=== PATIENT | male | born 1980 | race Caucasian/White ===

== ENCOUNTER 2016-07-04 10:50 | Emergency (ER) | payer BC ==
[2016-07-04] MEDS ORDERED: ONDANSETRON 4MG/2ML VIAL (J2405) As Ordered ONE (13:40)
[2016-07-04 13:57] LABS: BASO # 0.2 K/mm3 (0.0-0.2); BASO % 1.9 % (0.0-1.0); EOS # 0.1 K/mm3 (0.0-0.50); LARGE UNSTAINED CELL # 0.1 K/mm3 (0.0-0.4); LARGE UNSTAINED CELL % 1.4 % (0.0-4.0); LYMPH # 1.4 K/mm3 (1.5-4.5); LYMPH % 14.6 % (24.0-44.0); MEAN CORPUSCULAR HEMOGLOBIN 32.7 pg (27.0-33.0); MEAN CORPUSCULAR HGB CONC 35.5 g/dl (32.0-36.5); MEAN CORPUSCULAR VOLUME 91.9 fl (80.0-96.0); MONO # 0.4 K/mm3 (0.0-0.8); MONO % 4.6 % (0.0-5.0); NEUTROPHILS # 6.7 K/mm3 (1.8-7.7); NEUTROPHILS % 76.5 % (36.0-66.0); PLATELET COUNT, AUTOMATED 245 k/mm3 (150-450); RED CELL DISTRIBUTION WIDTH 12.4 % (11.5-14.5); WHITE BLOOD COUNT 8.8 K/mm3 (4.0-10.0)
[2016-07-04 14:07] LABS: CONTROL LINE MONO INT CTR LINE PRESENT
--- NOTE | 2016-07-04 14:08 | REP ---
Clinical: Abdominal pain. Technique: Upright view of the chest with supine and upright views of the abdomen and pelvis. Findings: Frontal upright view of the chest demonstrates no acute cardiopulmonary process or free air below the diaphragm to suspect pneumoperitoneum. Supine and upright views of the abdomen and pelvis demonstrate nonspecific bowel gas pattern without obstruction or perforation. No organomegaly. No abnormal calcifications. Skeletal structures normal for age. Impression: Nonspecific bowel gas pattern. Signed by Efrain Moore MD 07/04/2016 01:59 P
[2016-07-04 14:16] LABS: ALBUMIN 4.8 GM/DL (3.2-5.2); ALBUMIN/GLOBULIN RATIO 1.85 (1.00-1.93); ALKALINE PHOSPHATASE 76 U/L (45-117); ALT/SGPT 23 U/L (12-78); ANION GAP 9 MEQ/L (8-16); AST/SGOT 42 U/L (15-37); BILIRUBIN,DIRECT 0.2 MG/DL (0.0-0.2); BLOOD UREA NITROGEN 16 MG/DL (7-18); CALCIUM LEVEL 9.3 MG/DL (8.5-10.1); CARBON DIOXIDE LEVEL 27 MEQ/L (21-32); CHLORIDE LEVEL 105 MEQ/L (98-107); CREATININE FOR GFR 0.85 MG/DL (0.70-1.30); GLOMERULAR FILTRATION RATE > 60.0 (>60); GLUCOSE, FASTING 77 MG/DL (70-105); POTASSIUM SERUM 4.4 MEQ/L (3.5-5.1); SODIUM LEVEL 141 MEQ/L (136-145); TOTAL PROTEIN 7.4 GM/DL (6.4-8.2)
--- NOTE | 2016-07-04 14:43 | EDDOCDS ---
Nurse's Notes [facility] Name: Ronn Hancock Age: 36 yrs Sex: Male : 1980 Arrival Date: 07/04/2016 Time: 10:50 Bed I3 / M3 Private MD: NO PRIMARY PHYSICIAN, . Diagnosis: Constipation, unspecified Presentation: 07/04 11:05 Presenting complaint: Patient states: for the past few months he has had nausea and kcs abdominal pain - last few weeks constipated . Dry mouth. Adult Sepsis Screening: The patient does not have new or worsening altered mentation. Patient's respiratory rate is less than 22. Systolic blood pressure is greater than 100. Patient has a qSOFA score of 0- Negative Sepsis Screen. Suicide/Homicide risk assessment- the patient denies having any suicidal and/or homicidal ideations and does not present with any other emotional, behavioral or mental health complaints. Status: Patient is not a general service officer or dependent. Transition of care: patient was not received from another setting of care. 11:05 Acuity: RAMONA Level 3 kcs 11:05 Method Of Arrival: Walkin/Carried/Asstd kcs Triage Assessment: 11:07 General: Appears comfortable, slender, well developed, well nourished, Behavior is kcs cooperative, pleasant. Pain: Location: left flank in to epigastric area and mid-abdomen Pain currently is 5 out of 10 on a pain scale. Pt Declines HIV testing. Neurological: Level of Consciousness is awake, alert. Respiratory: Airway is patent Respiratory effort is even, unlabored, Respiratory pattern is regular, symmetrical. Derm: Skin is intact, is healthy with good turgor, Skin is dry, Skin is normal. Historical: - Allergies: No known drug Allergies; - Home Meds: 1. none - PMHx: none; - PSHx: left middle finger surgery; - Social history: Smoking status: Patient uses tobacco products, light tobacco smoker. No barriers to communication noted, The patient speaks fluent [place]. - Family history: Not pertinent. - : The pt / caregiver states he / she is not on anticoagulants. Home medication list is obtained from the patient. - Exposure Risk Screening:: None identified. Screenin:38 Screening information is obtained from the patient. Fall risk: No risks identified. kr3 Assistance ADL's: requires no assistance with activities of daily living. Abuse/DV Screen: The patient / caregiver reports he/she is: not in a situation that causes fear, pain or injury. Nutritional screening: No deficits noted. Advance Directives: Currently, there is no health care proxy. home support is adequate. Assessment: 13:38 General: Appears in no apparent distress, comfortable, Behavior is appropriate for age, kr3 cooperative. Pain: Denies pain. Neurological: No deficits noted. GI: Bowel sounds present X 4 quads. Abd is soft and non tender Reports nausea. Derm: Skin is pink, warm & dry. 14:42 Adult Sepsis Screening: The patient does not have new or worsening altered mentation. dsf Patient's respiratory rate is less than 22. Systolic blood pressure is greater than 100. Patient has a qSOFA score of 0- Negative Sepsis Screen. General: Appears in no apparent distress, Behavior is appropriate for age, cooperative. Pain: Denies pain. Neurological: Level of Consciousness is awake, alert. Cardiovascular: Capillary refill < 3 seconds. Respiratory: Airway is patent Respiratory effort is even, unlabored, Respiratory pattern is regular, symmetrical. GI: Abdomen is flat. Derm: Skin is pink, warm & dry. Vital Signs: 10:52 BP 144 / 83; Pulse 88; Resp 18; Temp 99.3(O); Pulse Ox 98% ; Weight 59.42 kg (R); cmb Height 5 ft. 9 in. (175.26 cm) (R); Pain 7/10; 14:41 BP 128 / 86; Pulse 77; Resp 16; Temp 98.6(T); Pulse Ox 97% on R/A; Pain 0/10; dsf 10:52 Body Mass Index 19.35 (59.42 kg, 175.26 cm) cmb Vitals: 10:52 Log In Time: July 04, 2016 at 10:40. cmb 13:44 Strep Screen is obtained and tested: Negative, a GATSNEG culture is ordered in [facility] kr3 and sent. ED Course: 10:51 Patient visited by Nisha Garrison. cmb 10:51 Patient moved to Waiting cmb 10:52 NO PRIMARY PHYSICIAN, . is Private Physician. cmb 10:52 Patient moved to Pre RCE cmb 11:06 Triage Initiated kcs 12:10 Patient moved to Triage 3 rs3 12:27 Shayne Chavez PA-C is [facility]. cc10 12:27 Maximus Dunn MD is Attending Physician. cc10 12:55 Patient visited by Anusha Packer RN. mk4 12:57 Patient visited by Shayne Chavez PA-C. cc10 12:57 Patient visited by Shayne Chavez PA-C. cc10 13:23 Urinalysis Sent. jrd 13:24 Patient moved to 3 / jrd 13:37 Monoscreen Sent. kr3 13:37 Basic Metabolic Profile Sent. kr3 13:37 CBC with Diff Sent. kr3 13:37 Lipase Sent. kr3 13:37 Liver Profile Sent. kr3 13:37 Inserted saline lock: 20 gauge in right antecubital area and blood collected. The maki3 patient tolerated the procedure well. 13:38 The patient / caregiver is instructed regarding the plan of care and ED course. Patient jackie has correct armband on for positive identification. Placed in gown. Bed in low position. Call light in reach. Side rails up X 1. 13:47 Patient moved to Radiology dsf 13:56 Patient moved to / [facility] 13:58 Patient visited by Darleen Ogden RN. kr3 14:04 Patient name changed from Ronn\S\\S\Hancock\S\ to Ronn\S\Geovanny\S\Hancock. EDMS 14:06 [facility] Payment Agreement was scanned into [employer] and attached to record. lg 14:28 Abdomen, Flat\E\Upright,PA Chest Returned. EDMS 14:36 [facility] is Referral Physician. cc10 14:41 Discontinued lock intact, bleeding controlled, pressure dressing applied, No dsf redness/swelling at site. No procedures done that require assistance. Administered Medications: 13:42 Drug: Ondansetron 4 mg [ondansetron HCl 2 mg/mL intravenous solution (2 mL)] Route: kr3 IVP; Site: right antecubital; 13:42 Drug: NS 0.9% 500 ml [sodium chloride 0.9 % intravenous solution] Route: IV; Rate: kr3 bolus; Site: right antecubital; 14:43 Follow up: IV Status: Completed infusion; IV Intake: 500ml dsf Intake: 14:43 IV: 500.00ml; Total: 500.00ml. dsf Order Results: Lab Order: Basic Metabolic Profile; SPEC'M 07/04/16 13:35 Test: GLUCOSE, FASTING; Value: 77; Range: 70-105; Units: MG/DL; Status: F Test: BLOOD UREA NITROGEN; Value: 16; Range: 7-18; Units: MG/DL; Status: F Test: CREATININE FOR GFR; Value: 0.85; Range: 0.70-1.30; Units: MG/DL; Status: F Test: SODIUM LEVEL; Range: 136-145; Units: MEQ/L; Status: I Test: POTASSIUM SERUM; Range: 3.5-5.1; Units: MEQ/L; Status: I Test: CHLORIDE LEVEL; Range: 98-107; Units: MEQ/L; Status: I Test: CARBON DIOXIDE LEVEL; Range: 21-32; Units: MEQ/L; Status: I Test: ANION GAP; Range: 8-16; Units: MEQ/L; Status: I Test: CALCIUM LEVEL; Range: 8.5-10.1; Units: MG/DL; Status: I Test: GLOMERULAR FILTRATION RATE; Value: > 60.0; Range: >60; Status: F Test: SODIUM LEVEL; Value: 141; Range: 136-145; Units: MEQ/L; Status: F Test: POTASSIUM SERUM; Value: 4.4; Range: 3.5-5.1; Units: MEQ/L; Status: F Test: CHLORIDE LEVEL; Value: 105; Range: 98-107; Units: MEQ/L; Status: F Test: CARBON DIOXIDE LEVEL; Value: 27; Range: 21-32; Units: MEQ/L; Status: F Test: ANION GAP; Value: 9; Range: 8-16; Units: MEQ/L; Status: F Test: CALCIUM LEVEL; Value: 9.3; Range: 8.5-10.1; Units: MG/DL; Status: F Test Note: ; Units are mL/min/1.73 m2 Chronic Kidney Disease Staging per NKF: Stage I & II GFR >=60 Normal to Mildly Decreased Stage III GFR 30-59 Moderately Decreased Stage IV GFR 15-29 Severely Decreased Stage V GFR <15 Very Little GFR Left ESRD GFR <15 on STRAP CUTTER Lab Order: CBC with Diff; SPEC'M 07/04/16 13:35 Test: WHITE BLOOD COUNT; Value: 8.8; Range: 4.0-10.0; Units: K/mm3; Status: F Test: RED BLOOD COUNT; Value: 4.82; Range: 4.30-6.10; Units: M/mm3; Status: F Test: HEMOGLOBIN; Value: 15.7; Range: 14.0-18.0; Units: g/dl; Status: F Test: HEMATOCRIT; Value: 44.3; Range: 42.0-52.0; Units: %; Status: F Test: MEAN CORPUSCULAR VOLUME; Value: 91.9; Range: 80.0-96.0; Units: fl; Status: F Test: MEAN CORPUSCULAR HEMOGLOBIN; Value: 32.7; Range: 27.0-33.0; Units: pg; Status: F Test: MEAN CORPUSCULAR HGB CONC; Value: 35.5; Range: 32.0-36.5; Units: g/dl; Status: F Test: RED CELL DISTRIBUTION WIDTH; Value: 12.4; Range: 11.5-14.5; Units: %; Status: F Test: PLATELET COUNT, AUTOMATED; Value: 245; Range: 150-450; Units: k/mm3; Status: F Test: NEUTROPHILS %; Value: 76.5; Range: 36.0-66.0; Abnormal: Above high normal; Units: %; Status: F Test: LYMPH %; Value: 14.6; Range: 24.0-44.0; Abnormal: Below low normal; Units: %; Status: F Test: MONO %; Value: 4.6; Range: 0.0-5.0; Units: %; Status: F Test: EOS %; Value: 1.0; Range: 0.0-3.0; Units: %; Status: F Test: BASO %; Value: 1.9; Range: 0.0-1.0; Abnormal: Above high normal; Units: %; Status: F Test: LARGE UNSTAINED CELL %; Value: 1.4; Range: 0.0-4.0; Units: %; Status: F Test: NEUTROPHILS #; Value: 6.7; Range: 1.8-7.7; Units: K/mm3; Status: F Test: LYMPH #; Value: 1.4; Range: 1.5-4.5; Abnormal: Below low normal; Units: K/mm3; Status: F Test: MONO #; Value: 0.4; Range: 0.0-0.8; Units: K/mm3; Status: F Test: EOS #; Value: 0.1; Range: 0.0-0.50; Units: K/mm3; Status: F Test: BASO #; Value: 0.2; Range: 0.0-0.2; Units: K/mm3; Status: F Test: LARGE UNSTAINED CELL #; Value: 0.1; Range: 0.0-0.4; Units: K/mm3; Status: F Lab Order: Lipase; [facility]' 07/04/16 13:35 Test: LIPASE; Value: 66; Range: 73-393; Abnormal: Below low normal; Units: U/L; Status: F Lab Order: Liver Profile; [facility]' 07/04/16 13:35 Test: AST/SGOT; Value: 42; Range: 15-37; Abnormal: Above high normal; Units: U/L; Status: F Test: ALT/SGPT; Value: 23; Range: 12-78; Units: U/L; Status: F Test: ALKALINE PHOSPHATASE; Value: 76; Range: 45-117; Units: U/L; Status: F Test: BILIRUBIN,TOTAL; Value: 1.0; Range: 0.2-1.0; Units: MG/DL; Status: F Test: BILIRUBIN,DIRECT; Value: 0.2; Range: 0.0-0.2; Units: MG/DL; Status: F Test: TOTAL PROTEIN; Value: 7.4; Range: 6.4-8.2; Units: GM/DL; Status: F Test: ALBUMIN; Value: 4.8; Range: 3.2-5.2; Units: GM/DL; Status: F Test: ALBUMIN/GLOBULIN RATIO; Value: 1.85; Range: 1.00-1.93; Status: F Lab Order: Urinalysis; [facility]' 07/04/16 13:21 Test: APPEARANCE, URINE; Value: CLEAR; Range: CLEAR; Status: F Test: COLOR, URINE; Value: YELLOW; Range: YELLOW; Status: F Test: PH,URINE; Value: 8.0; Range: 5.0-9.0; Units: UNITS; Status: F Test: SPECIFIC GRAVITY URINE AUTO; Value: 1.021; Range: 1.002-1.035; Status: F Test: PROTEIN, URINE AUTO; Value: 2+; Range: NEGATIVE; Abnormal: Above high normal; Units: mg/dL; Status: F Test: GLUCOSE, URINE (UA) AUTO; Value: NEGATIVE; Range: NEGATIVE; Units: mg/dL; Status: F Test: KETONE, URINE AUTO; Value: 1+; Range: NEGATIVE; Abnormal: Above high normal; Units: mg/dL; Status: F Test: UROBILINOGEN, URINE AUTO; Value: 2.0; Range: 0.0-2.0; Abnormal: Above high normal; Units: mg/dL; Status: F Test: BILIRUBIN, URINE AUTO; Value: NEGATIVE; Range: NEGATIVE; Status: F Test: NITRITE, URINE AUTO; Value: NEGATIVE; Range: NEGATIVE; Status: F Test: LEUKOCYTE ESTERASE, URINE AUTO; Value: NEGATIVE; Range: NEGATIVE; Status: F Test: BLOOD, URINE BLOOD; Value: NEGATIVE; Range: NEGATIVE; Status: F Test: WBC, URINE AUTO; Value: 0; Range: 0-3; Units: /HPF; Status: F Test: RBC, URINE AUTO; Value: 5; Range: 0-3; Abnormal: Above high normal; Units: /HPF; Status: F Test: BACTERIA, URINE AUTO; Value: NEGATIVE; Range: NEGATIVE; Status: F Test: SQUAMOUS EPITHELIAL CELL UR AU; Value: 0; Range: 0-6; Units: /HPF; Status: F Test: MUCUS, URINE; Value: SMALL; Range: NEGATIVE; Status: F Test: SPERM, URINE AUTO; Value: SMALL; Range: NONE; Abnormal: Above high normal; Status: F Test: HYALINE CAST, URINE AUTO; Value: 0; Range: 0-1; Units: /LPF; Status: F Lab Order: Monoscreen; SPEC'M 07/04/16 13:35 Test: MONO SCRN; Value: NEGATIVE; Range: NEGATIVE; Status: F Radiology Order: Abdomen, Flat\E\Upright,PA Chest Test: Abdomen, Flat\E\Upright,PA Chest REASON FOR EXAMINATION: Abdomen Pain; Clinical: Abdominal pain.; ; Technique: Upright view of the chest with supine and upright views of the; abdomen and pelvis.; ; Findings: Frontal upright view of the chest demonstrates no acute; cardiopulmonary process or free air below the diaphragm to suspect; pneumoperitoneum. Supine and upright views of the abdomen and pelvis demonstrate; nonspecific bowel gas pattern without obstruction or perforation. No; organomegaly. No abnormal calcifications. Skeletal structures normal for age.; ; Impression:; Nonspecific bowel gas pattern.; ; ; Signed by; Efrain Moore MD 07/04/2016 01:59 P; Outcome: 14:36 Discharge ordered by Provider. cc10 14:41 Discharge Assessment: Patient awake, alert and oriented x 3. No cognitive and/or dsf functional deficits noted. Patient verbalized understanding of disposition instructions. patient administered narcotics - no. The following High Risk Discharge criteria are identified: None. Discharged to home ambulatory. Condition: stable. Discharge instructions given to patient, Instructed on discharge instructions, follow up and referral plans. medication usage, Demonstrated understanding of instructions, medications, Pt was receptive of discharge instructions/ teaching. Prescriptions given X 1. No special radiology studies were completed. Property sent home with patient. 14:43 Patient left the ED. dsf Signatures: Dispatcher [employer] EDMS Madeleine Dorado, FRANCHESCA RN Harrison Mansfield, Todd Brooks lg Darleen OgdenRN RN maki3 Laine CeeRN RN rs3 [place] [id number] Susannah Pereira RN RN dsf Nisha Garrison Margaret, RN RN mk4 Shayne Chavez, PA-C PA-C cc10 Rodolfo Concepcion PCA FIELD SUPPORT REP jrd MTDD
--- NOTE | 2016-07-04 14:43 | EDDOCDS ---
Physician Documentation [facility] Name: Ronn Hancock Age: 36 yrs Sex: Male : 1980 Arrival Date: 07/04/2016 Time: 10:50 Bed I3 / M3 Private MD: NO PRIMARY PHYSICIAN, . Disposition: 07/04/16 14:36 Discharged to Home/Self Care. Impression: Constipation, unspecified. - Condition is Stable. - Discharge Instructions: Constipation, Adult. - Prescriptions for Magnesium Citrate Oral Solution - take 1 bottle by ORAL route once daily; 1 bottle. - Medication Reconciliation form. - Follow up: Emergency Department; When: As needed; Reason: Worsening of conditions. [facility]: [facility]; When: Call to arrange an appointment; Reason: Wound/Symptom Recheck, Recheck today's complaints, Worsening of conditions, Continuance of care. - Problem is an ongoing problem. - Symptoms have improved. Historical: - Allergies: No known drug Allergies; - Home Meds: 1. none - PMHx: none; - PSHx: left middle finger surgery; - Social history: Smoking status: Patient uses tobacco products, light tobacco smoker. No barriers to communication noted, The patient speaks fluent [place]. - Family history: Not pertinent. - : The pt / caregiver states he / she is not on anticoagulants. Home medication list is obtained from the patient. - Exposure Risk Screening:: None identified. Vital Signs: 07/04 10:52 BP 144 / 83; Pulse 88; Resp 18; Temp 99.3(O); Pulse Ox 98% ; Weight 59.42 kg / 131 lbs cmb (R); Height 5 ft. 9 in. (175.26 cm) (R); Pain 7/10; 14:41 BP 128 / 86; Pulse 77; Resp 16; Temp 98.6(T); Pulse Ox 97% on R/A; Pain 0/10; dsf 10:52 Body Mass Index 19.35 (59.42 kg, 175.26 cm) cmb MDM: 13:14 Financial registration complete. lg 13:17 Ondansetron 4 mg IVP once ordered. cc10 13:17 IV Saline Lock ordered. cc10 13:17 Undress patient appropriately for examination ordered. cc10 13:17 Strep Screen, Nursing ordered. cc10 13:17 NS 0.9% 500 ml IV at bolus once ordered. cc10 13:18 Basic Metabolic Profile Ordered. EDMS 13:18 CBC with Diff Ordered. EDMS 13:18 Lipase Ordered. EDMS 13:18 Liver Profile Ordered. EDMS 13:18 Urinalysis Ordered. EDMS 13:18 Monoscreen Ordered. EDMS 13:19 Abdomen, Flat\E\Upright,PA Chest Ordered. EDMS 13:19 NOTHING BY MOUTH+DIET ordered. EDMS 13:45 GATS (NEGATIVE STREP SCREEN) Ordered. EDMS 14:06 [facility] Payment Agreement was scanned into [employer] and attached to record. lg 14:29 CBC with Diff Reviewed. cc10 14:29 Lipase Reviewed. cc10 14:29 Liver Profile Reviewed. cc10 14:29 Urinalysis Reviewed. cc10 14:29 Basic Metabolic Profile Reviewed. cc10 14:29 Monoscreen Reviewed. cc10 14:29 Abdomen, Flat\E\Upright,PA Chest Reviewed. cc10 Administered Medications: 13:42 Drug: Ondansetron 4 mg [ondansetron HCl 2 mg/mL intravenous solution (2 mL)] Route: kr3 IVP; Site: right antecubital; 13:42 Drug: NS 0.9% 500 ml [sodium chloride 0.9 % intravenous solution] Route: IV; Rate: kr3 bolus; Site: right antecubital; 14:43 Follow up: IV Status: Completed infusion; IV Intake: 500ml dsf Signatures: Dispatcher [employer] EDMS Madeleine Dorado RN RN kcs Harrison Amaro, Reg Reg lg Susannah Pereira RN RN dsf Shayne Chavez PA-C PA-C cc10 Darleen Ogden RN kr3 The chart was reviewed and I authenticate all verbal orders and agree with the evaluation and treatment provided.Attachments: 14:06 [facility] Payment Agreement lg MTDD
--- NOTE | 2016-07-06 15:44 | EDDOCDS ---
Physician Documentation [facility] Name: Ronn Hancock Age: 36 yrs Sex: Male : 1980 Arrival Date: 07/04/2016 Time: 10:50 Bed I3 / M3 Private MD: NO PRIMARY PHYSICIAN, . Disposition: 07/04/16 14:36 Discharged to Home/Self Care. Impression: Constipation, unspecified. - Condition is Stable. - Discharge Instructions: Constipation, Adult. - Prescriptions for Magnesium Citrate Oral Solution - take 1 bottle by ORAL route once daily; 1 bottle. - Medication Reconciliation form. - Follow up: Emergency Department; When: As needed; Reason: Worsening of conditions. [facility]: [facility]; When: Call to arrange an appointment; Reason: Wound/Symptom Recheck, Recheck today's complaints, Worsening of conditions, Continuance of care. - Problem is an ongoing problem. - Symptoms have improved. Historical: - Allergies: No known drug Allergies; - Home Meds: 1. none - PMHx: none; - PSHx: left middle finger surgery; - Social history: Smoking status: Patient uses tobacco products, light tobacco smoker. No barriers to communication noted, The patient speaks fluent [place]ian. - Family history: Not pertinent. - : The pt / caregiver states he / she is not on anticoagulants. Home medication list is obtained from the patient. - Exposure Risk Screening:: None identified. Vital Signs: 07/04 10:52 BP 144 / 83; Pulse 88; Resp 18; Temp 99.3(O); Pulse Ox 98% ; Weight 59.42 kg / 131 lbs cmb (R); Height 5 ft. 9 in. (175.26 cm) (R); Pain 7/10; 14:41 BP 128 / 86; Pulse 77; Resp 16; Temp 98.6(T); Pulse Ox 97% on R/A; Pain 0/10; dsf 10:52 Body Mass Index 19.35 (59.42 kg, 175.26 cm) cmb MDM: 13:14 Financial registration complete. lg 13:17 Ondansetron 4 mg IVP once ordered. cc10 13:17 IV Saline Lock ordered. cc10 13:17 Undress patient appropriately for examination ordered. cc10 13:17 Strep Screen, Nursing ordered. cc10 13:17 NS 0.9% 500 ml IV at bolus once ordered. cc10 13:18 Basic Metabolic Profile Ordered. EDMS 13:18 CBC with Diff Ordered. EDMS 13:18 Lipase Ordered. EDMS 13:18 Liver Profile Ordered. EDMS 13:18 Urinalysis Ordered. EDMS 13:18 Monoscreen Ordered. EDMS 13:19 Abdomen, Flat\E\Upright,PA Chest Ordered. EDMS 13:19 NOTHING BY MOUTH+DIET ordered. EDMS 13:45 GATS (NEGATIVE STREP SCREEN) Ordered. EDMS 14:06 [facility] Payment Agreement was scanned into [employer] and attached to record. lg 14:29 CBC with Diff Reviewed. cc10 14:29 Lipase Reviewed. cc10 14:29 Liver Profile Reviewed. cc10 14:29 Urinalysis Reviewed. cc10 14:29 Basic Metabolic Profile Reviewed. cc10 14:29 Monoscreen Reviewed. cc10 14:29 Abdomen, Flat\E\Upright,PA Chest Reviewed. cc10 07/05 11:51 T-Sheet-- Draft Copy was scanned into [employer] and attached to record. gb Administered Medications: 07/04 13:42 Drug: Ondansetron 4 mg [ondansetron HCl 2 mg/mL intravenous solution (2 mL)] Route: kr3 IVP; Site: right antecubital; 13:42 Drug: NS 0.9% 500 ml [sodium chloride 0.9 % intravenous solution] Route: IV; Rate: kr3 bolus; Site: right antecubital; 14:43 Follow up: IV Status: Completed infusion; IV Intake: 500ml dsf Signatures: Dispatcher [employer] EDMS Madeleine Dorado RN RN Jackelyn Velásquez, Reg Reg gb Harrison Amaro, Reg Reg lg Susannah Pereira RN RN dsf Shayne Chavez, PA-C PA-C cc10 Darleen Ogden RN kr3 The chart was reviewed and I authenticate all verbal orders and agree with the evaluation and treatment provided.Attachments: 14:06 [facility] Payment Agreement 07/05 11:51 T-Sheet-- Draft Copy gb Chart Complete MTDD
--- NOTE | 2016-07-06 15:44 | EDDOCDS ---
Physician Documentation [facility] Name: Ronn Hancock Age: 36 yrs Sex: Male : 1980 Arrival Date: 07/04/2016 Time: 10:50 Bed I3 / M3 Private MD: NO PRIMARY PHYSICIAN, . Disposition: 07/04/16 14:36 Discharged to Home/Self Care. Impression: Constipation, unspecified. - Condition is Stable. - Discharge Instructions: Constipation, Adult. - Prescriptions for Magnesium Citrate Oral Solution - take 1 bottle by ORAL route once daily; 1 bottle. - Medication Reconciliation form. - Follow up: Emergency Department; When: As needed; Reason: Worsening of conditions. Follow up: [facility]; When: Call to arrange an appointment; Reason: Wound/Symptom Recheck, Recheck today's complaints, Worsening of conditions, Continuance of care. - Problem is an ongoing problem. - Symptoms have improved. Historical: - Allergies: No known drug Allergies; - Home Meds: 1. none - PMHx: none; - PSHx: left middle finger surgery; - Social history: Smoking status: Patient uses tobacco products, light tobacco smoker. No barriers to communication noted, The patient speaks fluent [place]. - Family history: Not pertinent. - : The pt / caregiver states he / she is not on anticoagulants. Home medication list is obtained from the patient. - Exposure Risk Screening:: None identified. Vital Signs: 07/04 10:52 BP 144 / 83; Pulse 88; Resp 18; Temp 99.3(O); Pulse Ox 98% ; Weight 59.42 kg / 131 lbs cmb (R); Height 5 ft. 9 in. (175.26 cm) (R); Pain 7/10; 14:41 BP 128 / 86; Pulse 77; Resp 16; Temp 98.6(T); Pulse Ox 97% on R/A; Pain 0/10; dsf 10:52 Body Mass Index 19.35 (59.42 kg, 175.26 cm) cmb MDM: 13:14 Financial registration complete. lg 13:17 Ondansetron 4 mg IVP once ordered. cc10 13:17 IV Saline Lock ordered. cc10 13:17 Undress patient appropriately for examination ordered. cc10 13:17 Strep Screen, Nursing ordered. cc10 13:17 NS 0.9% 500 ml IV at bolus once ordered. cc10 13:18 Basic Metabolic Profile Ordered. EDMS 13:18 CBC with Diff Ordered. EDMS 13:18 Lipase Ordered. EDMS 13:18 Liver Profile Ordered. EDMS 13:18 Urinalysis Ordered. EDMS 13:18 Monoscreen Ordered. EDMS 13:19 Abdomen, Flat\E\Upright,PA Chest Ordered. EDMS 13:19 NOTHING BY MOUTH+DIET ordered. EDMS 13:45 GATS (NEGATIVE STREP SCREEN) Ordered. EDMS 14:06 COUNTS INCLUDE 234 BEDS AT THE [facility] Payment Agreement was scanned into [employer] and attached to record. lg 14:29 CBC with Diff Reviewed. cc10 14:29 Lipase Reviewed. cc10 14:29 Liver Profile Reviewed. cc10 14:29 Urinalysis Reviewed. cc10 14:29 Basic Metabolic Profile Reviewed. cc10 14:29 Monoscreen Reviewed. cc10 14:29 Abdomen, Flat\E\Upright,PA Chest Reviewed. cc10 07/05 11:51 T-Sheet-- Draft Copy was scanned into [employer] and attached to record. gb Administered Medications: 07/04 13:42 Drug: Ondansetron 4 mg [ondansetron HCl 2 mg/mL intravenous solution (2 mL)] Route: kr3 IVP; Site: right antecubital; 13:42 Drug: NS 0.9% 500 ml [sodium chloride 0.9 % intravenous solution] Route: IV; Rate: kr3 bolus; Site: right antecubital; 14:43 Follow up: IV Status: Completed infusion; IV Intake: 500ml dsf Signatures: Dispatcher [employer] EDMS Madeleine Dorado RN RN Jackelyn Velásquez, Reg Reg gb Harrison Amaro, Reg Reg lg Susannah Pereira RN RN dsf Shayne Chavez, PA-C PA-C cc10 Darleen Ogden RN kr3 The chart was reviewed and I authenticate all verbal orders and agree with the evaluation and treatment provided.Attachments: 14:06 COUNTS INCLUDE 234 BEDS AT THE [facility] Payment Agreement 07/05 11:51 T-Sheet-- Draft Copy gb Chart Complete MTDD
--- NOTE | 2016-07-06 15:44 | EDDOCDS ---
Nurse[facility] Name: Ronn Hancock Age: 36 yrs Sex: Male : 1980 Arrival Date: 07/04/2016 Time: 10:50 Bed I3 / M3 Private MD: NO PRIMARY PHYSICIAN, . Diagnosis: Constipation, unspecified Presentation: 07/04 11:05 Presenting complaint: Patient states: for the past few months he has had nausea and kcs abdominal pain - last few weeks constipated . Dry mouth. Adult Sepsis Screening: The patient does not have new or worsening altered mentation. Patient's respiratory rate is less than 22. Systolic blood pressure is greater than 100. Patient has a qSOFA score of 0- Negative Sepsis Screen. Suicide/Homicide risk assessment- the patient denies having any suicidal and/or homicidal ideations and does not present with any other emotional, behavioral or mental health complaints. Status: Patient is not a account services analyst or dependent. Transition of care: patient was not received from another setting of care. 11:05 Acuity: RAMONA Level 3 kcs 11:05 Method Of Arrival: Walkin/Carried/Asstd kcs Triage Assessment: 11:07 General: Appears comfortable, slender, well developed, well nourished, Behavior is kcs cooperative, pleasant. Pain: Location: left flank in to epigastric area and mid-abdomen Pain currently is 5 out of 10 on a pain scale. Pt Declines HIV testing. Neurological: Level of Consciousness is awake, alert. Respiratory: Airway is patent Respiratory effort is even, unlabored, Respiratory pattern is regular, symmetrical. Derm: Skin is intact, is healthy with good turgor, Skin is dry, Skin is normal. Historical: - Allergies: No known drug Allergies; - Home Meds: 1. none - PMHx: none; - PSHx: left middle finger surgery; - Social history: Smoking status: Patient uses tobacco products, light tobacco smoker. No barriers to communication noted, The patient speaks fluent Portuguese. - Family history: Not pertinent. - : The pt / caregiver states he / she is not on anticoagulants. Home medication list is obtained from the patient. - Exposure Risk Screening:: None identified. Screenin:38 Screening information is obtained from the patient. Fall risk: No risks identified. kr3 Assistance ADL's: requires no assistance with activities of daily living. Abuse/DV Screen: The patient / caregiver reports he/she is: not in a situation that causes fear, pain or injury. Nutritional screening: No deficits noted. Advance Directives: Currently, there is no health care proxy. home support is adequate. Assessment: 13:38 General: Appears in no apparent distress, comfortable, Behavior is appropriate for age, kr3 cooperative. Pain: Denies pain. Neurological: No deficits noted. GI: Bowel sounds present X 4 quads. Abd is soft and non tender Reports nausea. Derm: Skin is pink, warm & dry. 14:42 Adult Sepsis Screening: The patient does not have new or worsening altered mentation. dsf Patient's respiratory rate is less than 22. Systolic blood pressure is greater than 100. Patient has a qSOFA score of 0- Negative Sepsis Screen. General: Appears in no apparent distress, Behavior is appropriate for age, cooperative. Pain: Denies pain. Neurological: Level of Consciousness is awake, alert. Cardiovascular: Capillary refill < 3 seconds. Respiratory: Airway is patent Respiratory effort is even, unlabored, Respiratory pattern is regular, symmetrical. GI: Abdomen is flat. Derm: Skin is pink, warm & dry. Vital Signs: 10:52 BP 144 / 83; Pulse 88; Resp 18; Temp 99.3(O); Pulse Ox 98% ; Weight 59.42 kg (R); cmb Height 5 ft. 9 in. (175.26 cm) (R); Pain 7/10; 14:41 BP 128 / 86; Pulse 77; Resp 16; Temp 98.6(T); Pulse Ox 97% on R/A; Pain 0/10; dsf 10:52 Body Mass Index 19.35 (59.42 kg, 175.26 cm) cmb Vitals: 10:52 Log In Time: July 04, 2016 at 10:40. cmb 13:44 Strep Screen is obtained and tested: Negative, a GATSNEG culture is ordered in [facility] kr3 and sent. ED Course: 10:51 Patient visited by Nisha Garrison. cmb 10:51 Patient moved to Waiting cmb 10:52 NO PRIMARY PHYSICIAN, . is Private Physician. cmb 10:52 Patient moved to Pre RCE cmb 11:06 Triage Initiated kcs 12:10 Patient moved to Triage 3 rs3 12:27 Shayne Chavez [facility]C [facility]. cc10 12:27 Maximus Dunn MD is Attending Physician. cc10 12:55 Patient visited by Anusha Packer RN. mk4 12:57 Patient visited by Shayne Chavez PA-C. cc10 12:57 Patient visited by Shayne Chavez PA-C. cc10 13:23 Urinalysis Sent. jrd 13:24 Patient moved to 3 / jrd 13:37 Monoscreen Sent. kr3 13:37 Basic Metabolic Profile Sent. kr3 13:37 CBC with Diff Sent. kr3 13:37 Lipase Sent. kr3 13:37 Liver Profile Sent. kr3 13:37 Inserted saline lock: 20 gauge in right antecubital area and blood collected. The kr3 patient tolerated the procedure well. 13:38 The patient / caregiver is instructed regarding the plan of care and ED course. Patient jackie has correct armband on for positive identification. Placed in gown. Bed in low position. Call light in reach. Side rails up X 1. 13:47 Patient moved to Radiology dsf 13:56 Patient moved to / [facility] 13:58 Patient visited by Darleen Ogden RN. kr3 14:04 Patient name changed from Ronn\S\\S\Hancock\S\ to Ronn\S\Geovanny\S\Hancock. EDMS 14:06 [facility] Payment Agreement was scanned into [employer] and attached to record. lg 14:28 Abdomen, Flat\E\Upright,PA Chest Returned. EDMS 14:36 [facility] is Referral Physician. cc10 14:41 Discontinued lock intact, bleeding controlled, pressure dressing applied, No dsf redness/swelling at site. No procedures done that require assistance. 07/05 11:51 T-Sheet-- Draft Copy was scanned into [employer] and attached to record. gb Administered Medications: 07/04 13:42 Drug: Ondansetron 4 mg [ondansetron HCl 2 mg/mL intravenous solution (2 mL)] Route: kr3 IVP; Site: right antecubital; 13:42 Drug: NS 0.9% 500 ml [sodium chloride 0.9 % intravenous solution] Route: IV; Rate: kr3 bolus; Site: right antecubital; 14:43 Follow up: IV Status: Completed infusion; IV Intake: 500ml dsf Intake: 14:43 IV: 500.00ml; Total: 500.00ml. dsf Order Results: Lab Order: Basic Metabolic Profile; AVRIL 07/04/16 13:35 Test: GLUCOSE, FASTING; Value: 77; Range: 70-105; Units: MG/DL; Status: F Test: BLOOD UREA NITROGEN; Value: 16; Range: 7-18; Units: MG/DL; Status: F Test: CREATININE FOR GFR; Value: 0.85; Range: 0.70-1.30; Units: MG/DL; Status: F Test: SODIUM LEVEL; Range: 136-145; Units: MEQ/L; Status: I Test: POTASSIUM SERUM; Range: 3.5-5.1; Units: MEQ/L; Status: I Test: CHLORIDE LEVEL; Range: 98-107; Units: MEQ/L; Status: I Test: CARBON DIOXIDE LEVEL; Range: 21-32; Units: MEQ/L; Status: I Test: ANION GAP; Range: 8-16; Units: MEQ/L; Status: I Test: CALCIUM LEVEL; Range: 8.5-10.1; Units: MG/DL; Status: I Test: GLOMERULAR FILTRATION RATE; Value: > 60.0; Range: >60; Status: F Test: SODIUM LEVEL; Value: 141; Range: 136-145; Units: MEQ/L; Status: F Test: POTASSIUM SERUM; Value: 4.4; Range: 3.5-5.1; Units: MEQ/L; Status: F Test: CHLORIDE LEVEL; Value: 105; Range: 98-107; Units: MEQ/L; Status: F Test: CARBON DIOXIDE LEVEL; Value: 27; Range: 21-32; Units: MEQ/L; Status: F Test: ANION GAP; Value: 9; Range: 8-16; Units: MEQ/L; Status: F Test: CALCIUM LEVEL; Value: 9.3; Range: 8.5-10.1; Units: MG/DL; Status: F Test Note: ; Units are mL/min/1.73 m2 Chronic Kidney Disease Staging per NKF: Stage I & II GFR >=60 Normal to Mildly Decreased Stage III GFR 30-59 Moderately Decreased Stage IV GFR 15-29 Severely Decreased Stage V GFR <15 Very Little GFR Left ESRD GFR <15 on ATMOSPHERIC SCIENTIST Lab Order: CBC with Diff; SPEC'M 07/04/16 13:35 Test: WHITE BLOOD COUNT; Value: 8.8; Range: 4.0-10.0; Units: K/mm3; Status: F Test: RED BLOOD COUNT; Value: 4.82; Range: 4.30-6.10; Units: M/mm3; Status: F Test: HEMOGLOBIN; Value: 15.7; Range: 14.0-18.0; Units: g/dl; Status: F Test: HEMATOCRIT; Value: 44.3; Range: 42.0-52.0; Units: %; Status: F Test: MEAN CORPUSCULAR VOLUME; Value: 91.9; Range: 80.0-96.0; Units: fl; Status: F Test: MEAN CORPUSCULAR HEMOGLOBIN; Value: 32.7; Range: 27.0-33.0; Units: pg; Status: F Test: MEAN CORPUSCULAR HGB CONC; Value: 35.5; Range: 32.0-36.5; Units: g/dl; Status: F Test: RED CELL DISTRIBUTION WIDTH; Value: 12.4; Range: 11.5-14.5; Units: %; Status: F Test: PLATELET COUNT, AUTOMATED; Value: 245; Range: 150-450; Units: k/mm3; Status: F Test: NEUTROPHILS %; Value: 76.5; Range: 36.0-66.0; Abnormal: Above high normal; Units: %; Status: F Test: LYMPH %; Value: 14.6; Range: 24.0-44.0; Abnormal: Below low normal; Units: %; Status: F Test: MONO %; Value: 4.6; Range: 0.0-5.0; Units: %; Status: F Test: EOS %; Value: 1.0; Range: 0.0-3.0; Units: %; Status: F Test: BASO %; Value: 1.9; Range: 0.0-1.0; Abnormal: Above high normal; Units: %; Status: F Test: LARGE UNSTAINED CELL %; Value: 1.4; Range: 0.0-4.0; Units: %; Status: F Test: NEUTROPHILS #; Value: 6.7; Range: 1.8-7.7; Units: K/mm3; Status: F Test: LYMPH #; Value: 1.4; Range: 1.5-4.5; Abnormal: Below low normal; Units: K/mm3; Status: F Test: MONO #; Value: 0.4; Range: 0.0-0.8; Units: K/mm3; Status: F Test: EOS #; Value: 0.1; Range: 0.0-0.50; Units: K/mm3; Status: F Test: BASO #; Value: 0.2; Range: 0.0-0.2; Units: K/mm3; Status: F Test: LARGE UNSTAINED CELL #; Value: 0.1; Range: 0.0-0.4; Units: K/mm3; Status: F Lab Order: Lipase; [facility] 07/04/16 13:35 Test: LIPASE; Value: 66; Range: 73-393; Abnormal: Below low normal; Units: U/L; Status: F Lab Order: Liver Profile; [facility] 07/04/16 13:35 Test: AST/SGOT; Value: 42; Range: 15-37; Abnormal: Above high normal; Units: U/L; Status: F Test: ALT/SGPT; Value: 23; Range: 12-78; Units: U/L; Status: F Test: ALKALINE PHOSPHATASE; Value: 76; Range: 45-117; Units: U/L; Status: F Test: BILIRUBIN,TOTAL; Value: 1.0; Range: 0.2-1.0; Units: MG/DL; Status: F Test: BILIRUBIN,DIRECT; Value: 0.2; Range: 0.0-0.2; Units: MG/DL; Status: F Test: TOTAL PROTEIN; Value: 7.4; Range: 6.4-8.2; Units: GM/DL; Status: F Test: ALBUMIN; Value: 4.8; Range: 3.2-5.2; Units: GM/DL; Status: F Test: ALBUMIN/GLOBULIN RATIO; Value: 1.85; Range: 1.00-1.93; Status: F Lab Order: Urinalysis; [facility] 07/04/16 13:21 Test: APPEARANCE, URINE; Value: CLEAR; Range: CLEAR; Status: F Test: COLOR, URINE; Value: YELLOW; Range: YELLOW; Status: F Test: PH,URINE; Value: 8.0; Range: 5.0-9.0; Units: UNITS; Status: F Test: SPECIFIC GRAVITY URINE AUTO; Value: 1.021; Range: 1.002-1.035; Status: F Test: PROTEIN, URINE AUTO; Value: 2+; Range: NEGATIVE; Abnormal: Above high normal; Units: mg/dL; Status: F Test: GLUCOSE, URINE (UA) AUTO; Value: NEGATIVE; Range: NEGATIVE; Units: mg/dL; Status: F Test: KETONE, URINE AUTO; Value: 1+; Range: NEGATIVE; Abnormal: Above high normal; Units: mg/dL; Status: F Test: UROBILINOGEN, URINE AUTO; Value: 2.0; Range: 0.0-2.0; Abnormal: Above high normal; Units: mg/dL; Status: F Test: BILIRUBIN, URINE AUTO; Value: NEGATIVE; Range: NEGATIVE; Status: F Test: NITRITE, URINE AUTO; Value: NEGATIVE; Range: NEGATIVE; Status: F Test: LEUKOCYTE ESTERASE, URINE AUTO; Value: NEGATIVE; Range: NEGATIVE; Status: F Test: BLOOD, URINE BLOOD; Value: NEGATIVE; Range: NEGATIVE; Status: F Test: WBC, URINE AUTO; Value: 0; Range: 0-3; Units: /HPF; Status: F Test: RBC, URINE AUTO; Value: 5; Range: 0-3; Abnormal: Above high normal; Units: /HPF; Status: F Test: BACTERIA, URINE AUTO; Value: NEGATIVE; Range: NEGATIVE; Status: F Test: SQUAMOUS EPITHELIAL CELL UR AU; Value: 0; Range: 0-6; Units: /HPF; Status: F Test: MUCUS, URINE; Value: SMALL; Range: NEGATIVE; Status: F Test: SPERM, URINE AUTO; Value: SMALL; Range: NONE; Abnormal: Above high normal; Status: F Test: HYALINE CAST, URINE AUTO; Value: 0; Range: 0-1; Units: /LPF; Status: F Lab Order: Monoscreen; SPEC'M 07/04/16 13:35 Test: MONO SCRN; Value: NEGATIVE; Range: NEGATIVE; Status: F Lab Order: GATS (NEGATIVE STREP SCREEN); SPEC'M 07/04/16 13:35 Test: GATS CULTURE (NEG STREP SCR); Value: GATS RESULT NEGATIVE FOR STREP PYOGENES (GROUP A); Status: F Radiology Order: Abdomen, Flat\E\Upright,PA Chest Test: Abdomen, Flat\E\Upright,PA Chest REASON FOR EXAMINATION: Abdomen Pain; Clinical: Abdominal pain.; ; Technique: Upright view of the chest with supine and upright views of the; abdomen and pelvis.; ; Findings: Frontal upright view of the chest demonstrates no acute; cardiopulmonary process or free air below the diaphragm to suspect; pneumoperitoneum. Supine and upright views of the abdomen and pelvis demonstrate; nonspecific bowel gas pattern without obstruction or perforation. No; organomegaly. No abnormal calcifications. Skeletal structures normal for age.; ; Impression:; Nonspecific bowel gas pattern.; ; ; Signed by; Efrain Moore MD 07/04/2016 01:59 P; Outcome: 14:36 Discharge ordered by Provider. cc10 14:41 Discharge Assessment: Patient awake, alert and oriented x 3. No cognitive and/or dsf functional deficits noted. Patient verbalized understanding of disposition instructions. patient administered narcotics - no. The following High Risk Discharge criteria are identified: None. Discharged to home ambulatory. Condition: stable. Discharge instructions given to patient, Instructed on discharge instructions, follow up and referral plans. medication usage, Demonstrated understanding of instructions, medications, Pt was receptive of discharge instructions/ teaching. Prescriptions given X 1. No special radiology studies were completed. Property sent home with patient. 14:43 Patient left the ED. dsf Signatures: Dispatcher [employer] EDMS Madeleine Dorado RN RN Jackelyn Velásquez, Reg Reg gb Harrison Amaro, Reg Reg lg Darleen OgdenRN RN [id number] Laine CeeRN RN rs3 Estrellita Katz Susannah Herron RN RN dsf Nisha Garrison Margaret, RN RN mk4 Shayne Chavez, PA-C PA-C cc10 Rodolfo Concepcion PCA SENIOR PROJECT ARCHITECT jrd Chart Complete MTDD
== END 2016-07-04 14:43 | disposition home or self-care (01) ==
LOC: M ED 10:50
DX: K59.00 Constipation, unspecified (principal); R11.0 Nausea; J02.9 Acute pharyngitis, unspecified; F17.210 Nicotine dependence, cigarettes, uncomplicated
CPT/HCPCS: 36415; 74022; 80048; 80076; 81001; 83690; 85025; 86308; 87880; 96361; 96374; 99284; J2405

== ENCOUNTER → 2018-05-13 | Outpatient (CLI) | payer BC | LOC: M OUTALCOH 09:50 | DX: Z03.89 Encounter for observation for other suspected diseases and conditions ruled out (principal) ==

== ENCOUNTER → 2018-05-22 | Outpatient (RCR) | payer BC | LOC: M OUTALCOH 10:11 | DX: Z03.89 Encounter for observation for other suspected diseases and conditions ruled out (principal) ==

== ENCOUNTER → 2018-12-29 | Outpatient (CLI) | payer BC | LOC: M OUTALCOH 08:27 | PROVIDERS: ATTEND Psychiatry & Neurology Psychiatry | DX: Z03.89 Encounter for observation for other suspected diseases and conditions ruled out (principal) ==

== ENCOUNTER 2019-01-19 08:00 | Outpatient (RCR) | payer BC | END 2019-01-20 | LOC: M OUTALCOH 08:00 | PROVIDERS: ATTEND Psychiatry & Neurology Psychiatry | DX: F10.10 Alcohol abuse, uncomplicated (principal); F17.200 Nicotine dependence, unspecified, uncomplicated ==

== ENCOUNTER 2019-02-19 13:00 | Outpatient (RCR) | payer BC | END 2019-02-20 | LOC: M OUTALCOH 13:00 | PROVIDERS: ATTEND Psychiatry & Neurology Psychiatry | DX: F10.10 Alcohol abuse, uncomplicated (principal); F17.200 Nicotine dependence, unspecified, uncomplicated ==

== ENCOUNTER 2019-03-03 10:49 | Outpatient (RCR) | payer BC | END 2019-03-22 | LOC: M OUTALCOH 10:49 | PROVIDERS: ATTEND Psychiatry & Neurology Psychiatry | DX: F10.10 Alcohol abuse, uncomplicated (principal); F17.200 Nicotine dependence, unspecified, uncomplicated ==

== ENCOUNTER → 2020-05-15 | Outpatient (CLI) | payer BC | LOC: M OUTALCOH 08:36 | PROVIDERS: ATTEND Psychiatry & Neurology Addiction Medicine | DX: Z13.39 Encounter for screening examination for other mental health and behavioral disorders (principal); F10.20 Alcohol dependence, uncomplicated ==

== ENCOUNTER → 2020-06-22 | Outpatient (RCR) | payer BC | LOC: M OUTALCOH 05-25 13:20 | PROVIDERS: ATTEND Psychiatry & Neurology Addiction Medicine | DX: F10.20 Alcohol dependence, uncomplicated (principal); Z72.0 Tobacco use ==

== ENCOUNTER 2020-07-19 08:00 | Outpatient (RCR) | payer BC | END 2020-07-23 | LOC: M OUTALCOH 08:00 | PROVIDERS: ATTEND Psychiatry & Neurology Addiction Medicine | DX: F10.20 Alcohol dependence, uncomplicated (principal); Z72.0 Tobacco use ==

== ENCOUNTER 2020-08-16 08:00 | Outpatient (RCR) | payer BC | END 2020-08-20 | LOC: M OUTALCOH 08:00 | PROVIDERS: ATTEND Psychiatry & Neurology Psychiatry | DX: F10.20 Alcohol dependence, uncomplicated (principal); Z72.0 Tobacco use ==

== ENCOUNTER 2020-09-14 09:00 | Outpatient (RCR) | payer BC | END 2020-09-20 | LOC: M OUTALCOH 09:00 | PROVIDERS: ATTEND Psychiatry & Neurology Psychiatry | DX: F10.20 Alcohol dependence, uncomplicated (principal); Z72.0 Tobacco use ==

== ENCOUNTER 2021-02-19 08:09 | Observation (INO) | payer BC ==
[~2021-02-19] VITALS: Ht 167.6 cm; Wt 69.1 kg
[2021-02-19] MEDS ORDERED: NS 1,000 ML IV ONE (08:20)
[2021-02-19 09:13] LABS: BASO % 0.2 % (0.0-1.0); EOS # 0.1 10^3/uL (0.0-0.5); EOS % 0.9 % (0.0-3.0); HEMATOCRIT 44.1 % (42.0-52.0); HEMOGLOBIN 15.9 g/dl (13.5-17.5); LYMPH # 1.2 10^3/uL (1.5-5.0); LYMPH % 9.2 % (24.0-44.0); MEAN CORPUSCULAR HEMOGLOBIN 32.5 pg (27.0-33.0); MEAN CORPUSCULAR HGB CONC 36.1 g/dl (32.0-36.5); MEAN CORPUSCULAR VOLUME 90.2 fl (80.0-96.0); MONO # 0.6 10^3/uL (0.0-0.8); MONO % 4.9 % (2.0-8.0); NEUTROPHILS # 10.8 10^3/uL (1.5-8.5); NEUTROPHILS % 84.3 % (36.0-66.0); PLATELET COUNT, AUTOMATED 231 10^3/uL (150-450); RED BLOOD COUNT 4.89 10^6/uL (4.30-6.10); WHITE BLOOD COUNT 12.8 10^3/uL (4.0-10.0)
[2021-02-19 09:35] LABS: ACETAMINOPHEN LEVEL < 2.0 UG/ML (10.0-30.0); ETHYL ALCOHOL (ETHANOL) < 0.003 % (0.000-0.010); SALICYLATE LEVEL 3.2 MG/DL (5.0-30.0)
[2021-02-19] MEDS ORDERED: FLUO20CA22 PO (09:36)
[2021-02-19] MEDS ORDERED: NALT50TA4 PO (09:36)
[2021-02-19 09:37] LABS: ALBUMIN 4.1 GM/DL (3.2-5.2); ALT/SGPT 25 U/L (12-78); BILIRUBIN,DIRECT 0.2 MG/DL (0.0-0.2); BILIRUBIN,TOTAL 0.6 MG/DL (0.2-1.0); BLOOD UREA NITROGEN 17 MG/DL (7-18); CALCIUM LEVEL 9.5 MG/DL (8.5-10.1); CARBON DIOXIDE LEVEL 25 MEQ/L (21-32); CHLORIDE LEVEL 110 MEQ/L (98-107); CREATININE FOR GFR 0.95 MG/DL (0.70-1.30); GLOMERULAR FILTRATION RATE > 60.0 (>60); GLUCOSE, FASTING 128 MG/DL (70-100); LIPASE 75 U/L (73-393); POTASSIUM SERUM 4.2 MEQ/L (3.5-5.1); SODIUM LEVEL 142 MEQ/L (136-145); TOTAL PROTEIN 7.3 GM/DL (6.4-8.2)
[2021-02-19 09:40] LABS: RSV AMPLIFICATION NEGATIVE (NEGATIVE)
[2021-02-19] MEDS ORDERED: ISOVUE-370 76% 100ML VIAL As Ordered ONE (09:58)
[2021-02-19] MEDS ORDERED: HOME MED LIST COMPLETE! XX SCH (10:20)
[2021-02-19 12:37] LABS: AMPHETAMINES LEVEL URINE NEGATIVE (NEGATIVE); BARBITURATES URINE NEGATIVE (NEGATIVE); BENZODIAZEPINES URINE NEGATIVE (NEGATIVE); CANNABINOIDS URINE POSITIVE (NEGATIVE); COCAINE METABOLITE URINE NEGATIVE (NEGATIVE); METHADONE URINE NEGATIVE (NEGATIVE); OPIATES URINE NEGATIVE (NEGATIVE); PHENCYCLIDINE URINE NEGATIVE (NEGATIVE)
[2021-02-19] MEDS ORDERED: ONDANSETRON 4MG/2ML VIAL IV PRN (14:45)
[2021-02-19] MEDS: LR 1,000 ML IV SCH ×2 (19:07→19:40)
[2021-02-19] MEDS: NALTREXONE 50 MG TAB PO SCH (20:23)
[2021-02-19] MEDS: FLUoxetine 20 MG CAP PO SCH (20:23)
[2021-02-19 21:30] LABS: HEMATOCRIT 40.6 % (42.0-52.0); HEMOGLOBIN 14.4 g/dl (13.5-17.5); MEAN CORPUSCULAR HEMOGLOBIN 32.7 pg (27.0-33.0); MEAN CORPUSCULAR HGB CONC 35.5 g/dl (32.0-36.5); MEAN CORPUSCULAR VOLUME 92.3 fl (80.0-96.0); PLATELET COUNT, AUTOMATED 207 10^3/uL (150-450); WHITE BLOOD COUNT 9.5 10^3/uL (4.0-10.0)
[2021-02-19 21:48] LABS: CK-MB VALUE MASS 2.7 NG/ML (<3.6); CPK CREATINE PHOSPHOKINASE 229 U/L (39-308); FREE T4 0.82 NG/DL (0.76-1.46); MB/CK RELATIVE INDEX 1.18 (< OR =4); TROPONIN I < 0.02 NG/ML (< 0.10)
[2021-02-19 22:00] VITALS: BP 120/64
[2021-02-20] MEDS: LR 1,000 ML IV SCH ×2 (00:19→05:00)
[2021-02-20 02:00] VITALS: BP 118/63
[2021-02-20 05:55] LABS: HEMOGLOBIN 13.2 g/dl (13.5-17.5); MEAN CORPUSCULAR HEMOGLOBIN 33.1 pg (27.0-33.0); MEAN CORPUSCULAR HGB CONC 35.7 g/dl (32.0-36.5); MEAN CORPUSCULAR VOLUME 92.7 fl (80.0-96.0); PLATELET COUNT, AUTOMATED 178 10^3/uL (150-450); RED BLOOD COUNT 3.99 10^6/uL (4.30-6.10); WHITE BLOOD COUNT 7.9 10^3/uL (4.0-10.0)
[2021-02-20 06:00] VITALS: BP 119/63
[2021-02-20 06:43] LABS: ALT/SGPT 20 U/L (12-78); BILIRUBIN,TOTAL 0.8 MG/DL (0.2-1.0); BLOOD UREA NITROGEN 13 MG/DL (7-18); CALCIUM LEVEL 8.4 MG/DL (8.5-10.1); CARBON DIOXIDE LEVEL 28 MEQ/L (21-32); CHLORIDE LEVEL 110 MEQ/L (98-107); CK-MB VALUE MASS 2.4 NG/ML (<3.6); CPK CREATINE PHOSPHOKINASE 195 U/L (39-308); CREATININE FOR GFR 0.68 MG/DL (0.70-1.30); GLOMERULAR FILTRATION RATE > 60.0 (>60); GLUCOSE, FASTING 84 MG/DL (70-100); MB/CK RELATIVE INDEX 1.23 (< OR =4); POTASSIUM SERUM 3.5 MEQ/L (3.5-5.1); SODIUM LEVEL 141 MEQ/L (136-145); TOTAL PROTEIN 5.7 GM/DL (6.4-8.2); TROPONIN I < 0.02 NG/ML (< 0.10)
[2021-02-20] MEDS: FLUoxetine 20 MG CAP PO SCH (08:31)
[2021-02-20] MEDS: NALTREXONE 50 MG TAB PO SCH (08:31)
[2021-02-20] MEDS ORDERED: ENOXAPARIN 40MG/0.4ML SYRINGE (J1650 PER 10MG) SC SCH (09:00)
== END 2021-02-20 10:44 | disposition home or self-care (01) ==
LOC: M ED 08:09 → EDBD 08:09 → M MSPAV 08:10 → ENRESERV 16:00
PROVIDERS: ADMIT Family Medicine; ATTEND Family Medicine
DX: R68.0 Hypothermia, not associated with low environmental temperature (principal); F10.10 Alcohol abuse, uncomplicated; F12.10 Cannabis abuse, uncomplicated; R11.2 Nausea with vomiting, unspecified; F32.9 Major depressive disorder, single episode, unspecified; F17.218 Nicotine dependence, cigarettes, with other nicotine-induced disorders; Z79.899 Other long term (current) drug therapy
CPT/HCPCS: 36415; 70450; 71275; 74177; 80048; 80053; 80076; 80143; 80307; 81001; 82077; 82550; 82553; 83605; 83690; 84439; 84443; 84484; 85025; 85027; 87040; 87631; 93005; 93041; 96361; 96374; 99285; Q9967

== ENCOUNTER 2022-01-27 19:04 | Emergency (ER) | payer BC, SELFPAY ==
[~2022-01-27] VITALS: Ht 175.3 cm; Wt 59.2 kg
[2022-01-27 19:04] VITALS: BP 135/88
[~2022-01-27 19:04] MED LIST: FLUO20CA22 PO; NALT50TA4 PO
[2022-01-27] MEDS ORDERED: AUGMENTIN 875 MG TAB PO ONE (20:55)
[2022-01-27] MEDS ORDERED: AMOX875T2 PO (20:55)
== END 2022-01-27 21:12 | disposition home or self-care (01) ==
LOC: M ED 19:04
DX: K02.9 Dental caries, unspecified (principal); K08.89 Other specified disorders of teeth and supporting structures; F19.10 Other psychoactive substance abuse, uncomplicated; F17.200 Nicotine dependence, unspecified, uncomplicated

== ENCOUNTER → 2023-06-30 | Outpatient (REF) | payer SELFPAY ==
[~2023-06-30] MED LIST changes: +AMOX875T2 PO
[2023-06-30 16:04] LABS: CHLAMYDIA DNA AMPLIFICATION NEGATIVE (NEGATIVE); GC DNA AMPLIFICATION NEGATIVE (NEGATIVE)
== END ==
LOC: M LAB REF 12:14
PROVIDERS: ATTEND Physician Assistant Medical
DX: Z11.3 Encounter for screening for infections with a predominantly sexual mode of transmission (principal); A59.9 Trichomoniasis, unspecified

== ENCOUNTER → 2023-11-25 | Outpatient (REF) | payer OTHER ==
[~2023-11-25] MED LIST changes: +FLUO-365 PO; -FLUO20CA22 PO
[2023-11-25 19:29] LABS: BASO # 0.1 10^3/uL (0.0-0.2); BASO % 1.1 % (0.0-1.0); EOS # 0.2 10^3/uL (0.0-0.5); EOS % 3.3 % (0.0-3.0); HEMATOCRIT 41.2 % (42.0-52.0); HEMOGLOBIN 14.5 g/dl (13.5-17.5); LYMPH # 1.2 10^3/uL (1.5-5.0); MEAN CORPUSCULAR HGB CONC 35.2 g/dl (32.0-36.5); MEAN CORPUSCULAR VOLUME 93.6 fl (80.0-96.0); MONO # 0.5 10^3/uL (0.0-0.8); MONO % 10.3 % (2.0-8.0); NEUTROPHILS # 2.7 10^3/uL (1.5-8.5); PLATELET COUNT, AUTOMATED 220 10^3/uL (150-450); WHITE BLOOD COUNT 4.6 10^3/uL (4.0-10.0)
[2023-11-25 19:42] LABS: HEMOGLOBIN A1c 4.7 % (4.0-6.0)
[2023-11-25 19:53] LABS: TOTAL 25(OH) VITAMIN D 25.6 NG/ML (20.0-100.0)
[2023-11-25 19:54] LABS: ALBUMIN 4.2 G/DL (3.2-5.2); ALKALINE PHOSPHATASE 73 U/L (46-116); ALT/SGPT 16 U/L (7.0-40); AST/SGOT 12 U/L (<34); BILIRUBIN,TOTAL 0.5 MG/DL (0.3-1.2); BLOOD UREA NITROGEN 24 MG/DL (9-23); CALCIUM LEVEL 9.3 MG/DL (8.5-10.1); CARBON DIOXIDE LEVEL 28 MMOL/L (20-31); CHLORIDE LEVEL 108 MMOL/L (98-107); CHOLESTEROL LEVEL 152 MG/DL (<200); CHOLESTEROL RISK RATIO 3.28 (<5); CREATININE FOR GFR 0.83 MG/DL (0.70-1.30); GLOMERULAR FILTRATION RATE > 60.0 (>60); GLUCOSE, FASTING 88 MG/DL (60-100); HDL CHOLESTEROL 46.3 MG/DL (>40); LDL CHOLESTEROL 97.3 MG/DL (<100); NON-HDL-C 105.7 MG/DL; POTASSIUM SERUM 5.1 MMOL/L (3.5-5.1); SODIUM LEVEL 141 MMOL/L (136-145); THYROID STIMULATING HORMONE 2.298 uIU/ML (0.55-4.78); TOTAL PROTEIN 6.7 G/DL (5.7-8.2); TRIGLYCERIDES LEVEL 42 MG/DL (<150)
== END ==
LOC: M LAB REF 17:59
PROVIDERS: ATTEND Nurse Practitioner Family
DX: E55.9 Vitamin D deficiency, unspecified (principal); Z11.9 Encounter for screening for infectious and parasitic diseases, unspecified; Z13.220 Encounter for screening for lipoid disorders; R53.83 Other fatigue

== ENCOUNTER → 2023-12-29 | Outpatient (REF) | payer OTHER ==
[2023-12-29 13:47] LABS: BASO % 0.8 % (0.0-1.0); EOS # 0.2 10^3/uL (0.0-0.5); EOS % 4.4 % (0.0-3.0); HEMATOCRIT 38.4 % (42.0-52.0); HEMOGLOBIN 13.9 g/dl (13.5-17.5); LYMPH # 1.5 10^3/uL (1.5-5.0); MEAN CORPUSCULAR HEMOGLOBIN 33.6 pg (27.0-33.0); MEAN CORPUSCULAR HGB CONC 36.2 g/dl (32.0-36.5); MEAN CORPUSCULAR VOLUME 92.8 fl (80.0-96.0); MONO # 0.4 10^3/uL (0.0-0.8); MONO % 7.6 % (2.0-8.0); NEUTROPHILS # 2.9 10^3/uL (1.5-8.5); PLATELET COUNT, AUTOMATED 217 10^3/uL (150-450); RED BLOOD COUNT 4.14 10^6/uL (4.30-6.10)
== END ==
LOC: M LAB REF 12:32
PROVIDERS: ATTEND Nurse Practitioner Family
DX: D72.810 Lymphocytopenia (principal)

== ENCOUNTER → 2024-03-05 | Outpatient (REF) | payer OTHER | LOC: M LAB REF 16:51 | PROVIDERS: ATTEND Nurse Practitioner Family | DX: Z20.818 Contact with and (suspected) exposure to other bacterial communicable diseases (principal) ==